=== PATIENT | male | born 1940 | race Two or more races ===

== ENCOUNTER 2017-10-26 10:42 | Inpatient (IN) | payer MEDICARE, MEDICAID ==
[~2017-10-26] VITALS: Ht 170.2 cm; Wt 68.5 kg
[~2017-10-26 10:42] MED LIST: PANT40SU2 PO; SUCR1ORA6 PO
--- NOTE | 2017-10-26 11:00 | NUR ---
ASSUME PT CARE. RESTING IN BED. HERE FOR DIZZINESS SINCE YESTERDAY. ALSO C/O NAUSEA NO VOMITING. DENIES CHEST PAIN. GOWNED AND PLACED ON MONITOR. AWAITING MD NELSON.
--- NOTE | 2017-10-26 11:16 | NUR ---
DR MARCELO AT BEDSIDE FOR EVAL.
--- NOTE | 2017-10-26 11:20 | NUR ---
IV LINE STARTED BLOOD DRAWN AND SENT TO LAB.
[2017-10-26 11:25] LABS: BASOPHILS # (AUTO) 0.1 /CMM (0.0-0.2); BASOPHILS % (AUTO) 2.5 % (0.0-2.0); EOSINOPHILS % (AUTO) 0.6 % (0.0-6.0); HEMATOCRIT 46 % (39-51); LYMPHOCYTES # (AUTO) 1.1 /CMM (0.8-4.8); LYMPHOCYTES % (AUTO) 19.2 % (20.0-44.0); MEAN CORPUSCULAR HEMOGLOBIN 29 PG (26.0-33.0); MEAN CORPUSCULAR HGB CONC 33 g/dl (31.0-36.0); MEAN CORPUSCULAR VOLUME 87 fL (80-96); MONOCYTES # (AUTO) 0.4 /CMM (0.1-1.30); MONOCYTES % (AUTO) 6.4 % (2.0-12.0); NEUTROPHILS # (AUTO) 4.1 /CMM (1.8-8.9); NEUTROPHILS % (AUTO) 71.3 % (43.0-81.0); PLATELET COUNT (AUTO) 78 /CMM (150-450); RDW COEFFICIENT OF VARIATION 12.9 (11.5-15.0); RED BLOOD CELL COUNT(AUTO) 5.26 MIL/uL (4.5-6.0); WHITE BLOOD COUNT (AUTO) 5.7 K/uL (4.3-11.0)
[2017-10-26] MEDS ORDERED: METOCLOPRAMIDE HCL 10 MG/2 ML VIAL ONE (11:28)
[2017-10-26] MEDS ORDERED: MECLIZINE HCL 25 MG TABLET ONE (11:28)
[2017-10-26] MEDS ORDERED: METOCLOPRAMIDE HCL 10 MG/2 ML VIAL IV ONE (11:30)
[2017-10-26] MEDS ORDERED: MECLIZINE HCL 12.5 MG TABLET PO ONE (11:30)
[2017-10-26] MEDS ORDERED: IV NS 0.9% 1,000 ML BAG IV ONE (11:30)
--- NOTE | 2017-10-26 11:32 | NUR ---
PT TO RADIOLOGY FOR HEAD CT SCAN VIA [facility] [place].
[2017-10-26 11:34] LABS: CALCIUM, SERUM 9.1 mg/dL (8.5-10.1); CARBON DIOXIDE 24 mmol/L (21-32); CHLORIDE 105 mmol/L (98-107); GLUCOSE 130 mg/dL (74-106); SODIUM SERUM 139 mmol/L (136-145); UREA NITROGEN, BLOOD 13 mg/dL (7-18)
--- NOTE | 2017-10-26 13:12 | NUR ---
PT IS ROAD TESTED. STEADY GAIT, PT STILL C/O BEING DIZZY BUT NOT BAD EARLIER. DR MARCELO AWARE.
--- NOTE | 2017-10-26 13:15 | NUR ---
PAGEDonta ALVARES FOR PANEL
[2017-10-26] MEDS ORDERED: DUTA0.5C PO (13:28)
[2017-10-26] MEDS ORDERED: PANT40TA4 PO (13:28)
[2017-10-26] MEDS ORDERED: SIMV40TA5 PO (13:28)
[2017-10-26] MEDS ORDERED: ASPIRIN 81 MG TAB.CHEW PO ONE (13:30)
[2017-10-26] MEDS ORDERED: ASPIRIN 81 MG TAB.CHEW ONE (13:43)
--- NOTE | 2017-10-26 14:30 | NUR ---
REPORT GIVEN TO REJI. PT AWAITNG TRANSFER TO FLOOR.
--- NOTE | 2017-10-26 15:00 | NUR ---
CROSSCUTTER ROLLED GLASS NOTES RECEIVED PT FROM E.R. STAFF VIA [facility], PT ABLE TO WALK TO BED WITH STANDBY ASSISTANCE, PT ALERT AND ORIENTED, NO COMPLAINT OF PAIN, BREATHING PATTERN NORMAL, STATED THAT HE STILL FEELS DIZZY BUT A LITTLE BETTER, SAFETY PRECAUTIONS OBSERVED, AT BEDSIDE, ASSISTED TO BATHROOM NEEDED, ROOM SET UP ORIENTATION PROVIDED, VERBALIZED UNDERSTANDING, VITAL SIGNS TAKEN AND RECORDED.
[2017-10-26 16:00] VITALS: BP 132/75
--- NOTE | 2017-10-26 16:30 | NUR ---
LINE UP WORKER NOTES PT IN BED, AWAKE, ALERT AND ORIENTED, BEDSIDE SWALLOW SCREEN DONE, PATIENT PASSED TEST, MD INFORMED, ORDERED REGULAR DIET.
[2017-10-26 17:19] LABS: INR 1.03 (0.87-1.13); PROTHROMBIN TIME 10.7 SECS (9.5-12.7)
[2017-10-26 17:25] LABS: CALCIUM, SERUM 9.6 mg/dL (8.5-10.1); CARBON DIOXIDE 19 mmol/L (21-32); CHLORIDE 108 mmol/L (98-107); CREATININE 1.1 mg/dL (0.6-1.3); GLUCOSE 131 mg/dL (74-106); POTASSIUM 4.2 mmol/L (3.5-5.1); SODIUM SERUM 143 mmol/L (136-145); UREA NITROGEN, BLOOD 13 mg/dL (7-18)
[2017-10-26] MEDS: BLOOD SUGAR DIAGNOSTIC 1 EACH STRIP IN SCH ×2 (17:27→21:00)
[2017-10-26 17:39] LABS: ALANINE AMINOTRANSFERASE 16 U/L (12-78); ALBUMIN 3.5 g/dL (3.4-5.0); ALKALINE PHOSPHATASE 69 U/L (46-116); ASPARTATE AMINOTRANSFERASE 20 U/L (15-37); B-TYPE NATRIURETIC PEPTIDE 114 PG/ML (0-125); BILIRUBIN,TOTAL 1.1 mg/dL (0.2-1.0); TOTAL PROTEIN, SERUM 7.8 g/dL (6.4-8.2)
[2017-10-26] MEDS ORDERED: BLOOD SUGAR DIAGNOSTIC 1 EACH STRIP IN SCH (18:00)
[2017-10-26 18:01] LABS: THYROID STIMULATING HORMONE 2.043 uIU/mL (0.358-3.74)
--- NOTE | 2017-10-26 18:22 | NUR ---
SUPERVISOR MILL NOTES PT IN BED, AWAKE, ALERT AND ORIENTED, NO COMPLAINT OF PAIN, BREATHING PATTERN NORMAL, TOLERATING ROOM AIR WELL, PLAN OF CARE DISCUSSED WITH PT, VERBALIZED UNDERSTANDING, STATED THAT HIS DIZZINESS IS IMPROVED, SAFETY PRECAUTIONS OBSERVED, STROKE EDUCATION PROVIDED, VERBALIZED UNDERSTANDING, CALL LIGHT WITHIN REACH, REMINDED PT TO ALWAYS USE CALL LIGHT FOR ASSISTANCE, ATE DINNER WITH GOOD APPETITE, ALL NEEDS ATTENDED.
--- NOTE | 2017-10-26 19:00 | NUR ---
RN NOTES RECEIVED PT IN BED RESTING COMFORTABLY. A/O X 3, PT IN STABLE CONDITION, NO S/S OF DISTRESS. NO COMPLAINS OF PAIN AT THIS TIME. SAFETY MEASURES ARE IN PLACE, CALL LIGHT IS IN REACH. WILL CONTINUE TO MONITOR.
[2017-10-26 20:00] VITALS: BP 110/65
[2017-10-27] VITALS: BP 113/60
[2017-10-27 02:35] LABS: APPEARANCE,URINE CLEAR (CLEAR); BILIRUBIN,URINE NEGATIVE (NEGATIVE); BLOOD, URINE NEGATIVE Ery/uL (NEGATIVE); COLOR,URINE YELLOW (YELLOW); KETONES,URINE NEGATIVE (NEGATIVE); LEUKOCYTE ESTERASE ,URINE NEGATIVE (NEGATIVE); NITRITE, URINE NEGATIVE (NEGATIVE); PROTEIN,URINE NEGATIVE (NEGATIVE); UGLUCOSE NEGATIVE (NEGATIVE)
[2017-10-27 02:53] LABS: BACTERIA,URINE None seen /HPF (None Seen); RBC,URINE NONE SEEN /HPF (0-2); SQUAMOUS EPITHELIAL CELL,UR Few /HPF (None Seen); WBC,URINE 0-2 /HPF (0-3)
[2017-10-27 04:00] VITALS: BP 114/65
[2017-10-27 06:34] LABS: BASOPHILS % (AUTO) 0.3 % (0.0-2.0); EOSINOPHILS # (AUTO) 0.1 /CMM (0.0-0.7); HEMATOCRIT 41 % (39-51); HEMOGLOBIN 13.5 g/dL (13.5-17.5); LYMPHOCYTES # (AUTO) 1.5 /CMM (0.8-4.8); LYMPHOCYTES % (AUTO) 26.5 % (20.0-44.0); MEAN CORPUSCULAR HEMOGLOBIN 29 PG (26.0-33.0); MEAN CORPUSCULAR HGB CONC 33 g/dl (31.0-36.0); MEAN CORPUSCULAR VOLUME 87 fL (80-96); MONOCYTES # (AUTO) 0.5 /CMM (0.1-1.30); MONOCYTES % (AUTO) 8.9 % (2.0-12.0); NEUTROPHILS # (AUTO) 3.6 /CMM (1.8-8.9); NEUTROPHILS % (AUTO) 63.3 % (43.0-81.0); PLATELET COUNT (AUTO) 72 /CMM (150-450); RDW COEFFICIENT OF VARIATION 13.2 (11.5-15.0); RED BLOOD CELL COUNT(AUTO) 4.72 MIL/uL (4.5-6.0); WHITE BLOOD COUNT (AUTO) 5.8 K/uL (4.3-11.0)
--- NOTE | 2017-10-27 06:48 | NUR ---
HEAT REGULATOR CLOSING NOTES IN BED ASLEEP AND EASILY AWAKEN A/O X4, HEAD OF BED ELEVATED FOR BETTER LUNG EXPANSION. O2 SAT AT 98% R.A RESPIRATIONS EVEN AND UNLABORED. NO S/S OF ACUTE DISTRESS. IN STABLE CONDITION. AFEBRILE, ALL NURSING CARE RENDERED. NEEDS ATTENDED AND ANTICIPATED, KEPT CLEAN AND DRY AND COMFORTABLE, NO COMPLAINS OF PAIN AT THIS TIME. ATTACH TO TELE MONITOR SR, 72'S. WITH EPISODES OF 1ST DEGREE AV BLOCK MADE AWARE HOME INSURANCE AGENT NOTIFIED DURING THE NIGHT NO NEW ORDERS. GOOD SKIN CARE PROVIDED. FREQUENT VISUAL CHECK DONE FOR SAFETY EVERY 2 HOURS. SAFE HAZARD FREE ENVIRONMENT PROVIDED. CALL LIGHT WITHIN EASY TO REACH, ON LOW BED AT ALL TIMES TO ENSURE SAFETY.WILL ENDORSE TO THE NEXT SHIFT.
[2017-10-27 06:50] LABS: INR 1.02 (0.87-1.13); PROTHROMBIN TIME 10.6 SECS (9.5-12.7)
[2017-10-27 06:54] LABS: CHOLESTEROL 159 mg/dL (<200); HDL CHOLESTEROL 39 mg/dL (40-60); LDL 99 mg/dL (0-99); TRIGLYCERIDES 103 mg/dL (30-150)
[2017-10-27 07:06] LABS: CALCIUM, SERUM 8.9 mg/dL (8.5-10.1); CARBON DIOXIDE 25 mmol/L (21-32); CHLORIDE 110 mmol/L (98-107); CREATININE 0.9 mg/dL (0.6-1.3); GLUCOSE 91 mg/dL (74-106); POTASSIUM 4.1 mmol/L (3.5-5.1); SODIUM SERUM 142 mmol/L (136-145); UREA NITROGEN, BLOOD 11 mg/dL (7-18)
[2017-10-27 07:10] VITALS: BP 119/60
--- NOTE | 2017-10-27 07:30 | NUR ---
RECEIVED PATIENT IN STABLE CONDITION. PATIENT IS ALERT AND ORIENTED. BEDSIDE RAILS ARE UP X2. BED IS LOCKED AND LOWERED. CALL LIGHT IS WITHIN REACH. WILL CONTINUE TO MONITOR.
[2017-10-27] MEDS: BLOOD SUGAR DIAGNOSTIC 1 EACH STRIP IN SCH ×4 (07:55→21:23)
[2017-10-27] MEDS: PANTOPRAZOLE 40 MG TABLET.DR PO SCH (07:56)
--- NOTE | 2017-10-27 08:12 | NUR ---
INFORMED DR KUMAR OF PATIENTS LOW PLATELET LEVEL: 72. NO NEW ORDERS.
[2017-10-27] MEDS: SIMVASTATIN 40 MG TABLET PO SCH (09:01)
[2017-10-27] MEDS: DUTASTERIDE (0.5 MG) 0.5 MG CAPSULE PO SCH (09:01)
[2017-10-27] MEDS ORDERED: TOBR5DRO12 EACHEYE (10:32)
[2017-10-27 11:35] LABS: EOSINOPHILS % (MANUAL) 1 % (0-4); LYMPHOCYTES % (MANUAL) 23 % (16-48); MONOCYTES % (MANUAL) 6 % (0-11.0); NEUTROPHILS % (MANUAL) 70 (42-76)
[2017-10-27 15:45] VITALS: BP 128/75
--- NOTE | 2017-10-27 16:48 | NUR ---
BLOOD SUGAR 104. NO COVERAGE NEEDED
[2017-10-27] MEDS: TOBRAMYCIN OPHTH 5ML 5 ML BOTTLE EACHEYE SCH ×2 (16:56→21:22)
--- NOTE | 2017-10-27 19:00 | NUR ---
RN NOTES RECEIVED PT IN BED. A/O X 4, PT IN STABLE CONDITION, NO S/S OF DISTRESS. NO COMPLAINS OF PAIN AT THIS TIME. SAFETY MEASURES ARE IN PLACE, CALL LIGHT IS IN REACH. WILL CONTINUE TO MONITOR.
--- NOTE | 2017-10-27 19:12 | NUR ---
MS RN CLOSING NOTES PATIENT IS IN STABLE CONDITION. ALL NEEDS WERE MET. CALL LIGHT IS WITHIN REACH. IN NO APPARENT DISTRESS. PATIENT IS ALERT AND ORIENTED. RESTING IN BED. BEDSIDE RAILS ARE UP X2. BED IS LOCKED AND LOWERED. WILL ENDORSE CARE TO MANAGER GOLF NURSE FOR CARROL.
[2017-10-27 20:00] VITALS: BP 136/62
--- NOTE | 2017-10-28 00:22 | NUR ---
MS RN NOTES PER PT WANT TO REMOVE IV LINE TO R HAND 20 BECAUSE IT BOTHERS HIM, REMOVED WILFREDO PROCEDURE WELL. IV ACCESS WAS PUT TO RFA 24 G TOLERATED PROCEDURE PER PT HE FEELS MORE OK WITH IT AND PREFERRED IT
[2017-10-28] MEDS: BLOOD SUGAR DIAGNOSTIC 1 EACH STRIP IN SCH ×2 (05:26→12:21)
--- NOTE | 2017-10-28 06:07 | NUR ---
MS RN CLOSING NOTES IN BED ASLEEP AND EASILY AWAKEN, HOB ELEVATED, TOLERATING ROOM AIR O2 SAT AT 100% RESPIRATIONS EVEN AND UNLABORED. AFEBRILE, IN STABLE CONDITION. NOT IN S/S OF DISTRESS. NO COMPLAINS OF PAIN. ALL NURSING CARE RENDERED. NEEDS ATTENDED AND ANTICIPATED, KEPT CLEAN AND DRY AND COMFORTABLE, GOOD SKIN CARE PROVIDED. FREQUENT VISUAL CHECK DONE FOR SAFETY EVERY 2 HOURS. ON LOW BED AT ALL TIMES TO ENSURE SAFETY. SAFE HAZARD FREE ENVIRONMENT PROVIDED. CALL LIGHT WITHIN EASY TO REACH. WILL ENDORSE NEXT SHIFT CONTINUITY OF CARE
--- NOTE | 2017-10-28 07:10 | NUR ---
MS RN OPENING NOTES RECEIVED PT FROM NIGHTSHIFT NURSE IN STABLE CONDITION. PT IS A/O X4. NO SOB OR SIGNS OF DISTRESS NOTED. BREATHING IS EVEN AND UNLABORED. PT DENIES ANY DIZZINESS, NAUSEA, OR PAIN AT THIS TIME. IV NOTED ON RIGHT FA 24G HL. IV IS PATENT AND INTACT. NO REDNESS OR SIGNS OF INFILTRATION NOTED. BED IN LOW LOCKED POSITION, SIDE RAILS UP X2, CALL LIGHT WITHIN REACH. PT'S AT BEDSIDE. WILL CONTINUE TO MONITOR.
[2017-10-28] MEDS: PANTOPRAZOLE 40 MG TABLET.DR PO SCH (07:36)
[2017-10-28 08:00] VITALS: BP 139/73
[2017-10-28] MEDS: DUTASTERIDE (0.5 MG) 0.5 MG CAPSULE PO SCH (09:14)
[2017-10-28] MEDS: TOBRAMYCIN OPHTH 5ML 5 ML BOTTLE EACHEYE SCH ×2 (09:14→12:28)
[2017-10-28] MEDS: SIMVASTATIN 40 MG TABLET PO SCH (09:14)
[2017-10-28] MEDS ORDERED: ASPIRIN EC 325 MG TABLET.DR PO SCH (13:00)
--- NOTE | 2017-10-28 13:32 | NUR ---
MS RN NOTES PT TAKEN DOWN FOR BRAIN MRI BY WHEELCHAIR IN STABLE CONDITION
--- NOTE | 2017-10-28 13:52 | NUR ---
MS RN NOTES PT BACK ON UNIT IN STABLE CONDITION FROM MRI. WILL AWAIT AND NOTIFY MD OF RESULTS
--- NOTE | 2017-10-28 17:43 | NUR ---
MS RN NOTES DR. ELAM WAS CONTACTED IN REGARDS TO PT'S MRI RESULTS. NO RESPONSE. DR. ALVARES MADE AWARE OF RESULTS AND STATED TO PROCEED WITH DISCHARGE AND "TCC IN WEEK". HE ALSO STATED THAT PT'S DOES NOT NEED TO BE ON ANY ANTITHROMBOTICS UPON DISCHARGE HE DID NOT HAVE A STROKE BUT POSSIBLE "VERTIGO". WILL CARRY OUT DISCHARGE.
--- NOTE | 2017-10-28 18:03 | NUR ---
MS EXTRA HAND NOTES PT WAS DISCHARGED FROM UNIT IN STABLE CONDITION. ALL NEEDS WERE METT DURING SHIFT AND ORDERS CARRIED OUT ACCORDINGLY. ALL DUE MEDS GIVEN. DISCHARGE INSTRUCTIONS WERE DISCUSSED IN FULL WITH BOTH THE PATIENT AND HIS . DISCHARGE STOKE EDUCATION PROVIDED TO PATIENT AND FAMILY. PT LEFT WITH DISCHARGE INSTRUCTIONS, FOLLOW UP APPOINTMENT REMINDER, STROKE PACKET, AND ALL BELONGINGS. IV WAS SUCCESSFULLY REMOVED WITH NO COMPLICATIONS. PT WAS SAFELY WHEELED DOWN TO HIS PRIVATE VEHICLE BY THE AUTOMOBILE PAINTER
== END 2017-10-28 18:00 | disposition home or self-care (01) | DRG 74 ==
LOC: ER 10:47 → TELE 14:24 → MED 10-27 09:20
PROVIDERS: ADMIT Internal Medicine; ATTEND Internal Medicine
DX: G90.8 Other disorders of autonomic nervous system (principal); D69.6 Thrombocytopenia, unspecified; E78.00 Pure hypercholesterolemia, unspecified; K21.9 Gastro-esophageal reflux disease without esophagitis; E78.5 Hyperlipidemia, unspecified; N40.0 Benign prostatic hyperplasia without lower urinary tract symptoms; Z83.3 Family history of diabetes mellitus
CPT/HCPCS: 36415; 70450-TC; 70551-TC; 80048-TC; 80053-TC; 80061-TC; 80305; 81000-TC; 82962-TC; 83880; 84443-TC; 84484-TC; 85025-TC; 85652-TC; 85730-TC; 87081-TC; 92611-TC; 93307-TC; A4606; J2765; J7030; J8597; Z7610

== ENCOUNTER 2017-10-31 11:57 | Outpatient (CLI) | payer MEDICARE, MEDICAID ==
[~2017-10-31] VITALS: Ht 170.2 cm; Wt 65.8 kg
[2017-10-31 11:52] VITALS: BP 145/85
[~2017-10-31 11:57] MED LIST changes: +DUTA0.5C PO; -PANT40SU2 PO; +PANT40TA4 PO; +SIMV40TA5 PO; -SUCR1ORA6 PO; +TOBR5DRO12 EACHEYE
== END 2017-10-31 23:59 | disposition home or self-care (01) ==
LOC: MSC 11:57
PROVIDERS: ATTEND Internal Medicine
DX: R42 Dizziness and giddiness (principal); E78.5 Hyperlipidemia, unspecified; K21.9 Gastro-esophageal reflux disease without esophagitis; N40.0 Benign prostatic hyperplasia without lower urinary tract symptoms

== ENCOUNTER 2017-11-29 14:40 | Emergency (ER) | payer MEDICARE, MEDICAID ==
[~2017-11-29] VITALS: Ht 170.2 cm; Wt 67.1 kg
[2017-11-29 14:45] VITALS: BP 109/61
[2017-11-29] MEDS ORDERED: ONDANSETRON HCL/PF 4 MG/2 ML VIAL ONE (15:29)
[2017-11-29] MEDS ORDERED: MECLIZINE HCL 25 MG TABLET ONE (15:29)
[2017-11-29] MEDS ORDERED: MECLIZINE HCL 12.5 MG TABLET PO ONE (15:30)
[2017-11-29] MEDS ORDERED: ONDANSETRON HCL/PF 4 MG/2 ML VIAL IVP ONE (15:30)
[2017-11-29 15:40] LABS: BASOPHILS % (AUTO) 0.2 % (0.0-2.0); EOSINOPHILS % (AUTO) 0.2 % (0.0-6.0); HEMATOCRIT 46 % (39-51); HEMOGLOBIN 15.6 g/dL (13.5-17.5); LYMPHOCYTES # (AUTO) 0.8 /CMM (0.8-4.8); LYMPHOCYTES % (AUTO) 11.5 % (20.0-44.0); MEAN CORPUSCULAR HEMOGLOBIN 29 PG (26.0-33.0); MEAN CORPUSCULAR HGB CONC 34 g/dl (31.0-36.0); MEAN CORPUSCULAR VOLUME 85 fL (80-96); MONOCYTES # (AUTO) 0.1 /CMM (0.1-1.30); MONOCYTES % (AUTO) 1.8 % (2.0-12.0); NEUTROPHILS % (AUTO) 86.3 % (43.0-81.0); PLATELET COUNT (AUTO) 76 /CMM (150-450); RDW COEFFICIENT OF VARIATION 13.4 (11.5-15.0); RED BLOOD CELL COUNT(AUTO) 5.37 MIL/uL (4.5-6.0); WHITE BLOOD COUNT (AUTO) 6.9 K/uL (4.3-11.0)
[2017-11-29 15:49] LABS: CALCIUM, SERUM 9.2 mg/dL (8.5-10.1); CARBON DIOXIDE 27 mmol/L (21-32); CHLORIDE 106 mmol/L (98-107); GLUCOSE 144 mg/dL (74-106); POTASSIUM 4.3 mmol/L (3.5-5.1); SODIUM SERUM 142 mmol/L (136-145); UREA NITROGEN, BLOOD 14 mg/dL (7-18)
== END 2017-11-29 17:29 | disposition home or self-care (01) ==
LOC: ER 14:42
DX: R42 Dizziness and giddiness (principal); R11.2 Nausea with vomiting, unspecified; R09.89 Other specified symptoms and signs involving the circulatory and respiratory systems; K21.9 Gastro-esophageal reflux disease without esophagitis
CPT/HCPCS: 36415; 80048; 85025; 93005; 96374; 99285; A4606; J2405; J8597; Z7610

== ENCOUNTER 2022-07-12 15:33 | Emergency (ER) | payer MEDICARE, OTHER ==
[~2022-07-12] VITALS: Ht 170.2 cm; Wt 66.2 kg
[~2022-07-12 15:33] MED LIST changes: -PANT40TA4 PO; +PANT40TA49 PO; +SIMV-49 PO; -SIMV40TA5 PO; -TOBR5DRO12 EACHEYE; +TOBR5DRO36 EACHEYE
[2022-07-12] MEDS ORDERED: MINERAL OIL 133 ML (PYXIS) 1 EA ENEMA RC ONE (16:00)
[2022-07-12] MEDS ORDERED: MAGNESIUM CITRATE 296 ML BOTTLE PO ONE (16:00)
[2022-07-12] MEDS ORDERED: NA PHOS,M-B/NA PHOS,DI-BA 1 EA ENEMA RC ONE (16:21)
--- NOTE | 2022-07-12 16:30 | NUR ---
Fleets enema as ordered (may need disimpaction). +External hemorrhoids noted. Dr. Umanzor made aware
[2022-07-12] MEDS ORDERED: PEG 3350/NA SULF,BICARB,CL/KCL 4,000 ML BOTTLE PO ONE (17:00)
--- NOTE | 2022-07-12 17:30 | NUR ---
Family at bedside. Both made aware of plan of care
--- NOTE | 2022-07-12 20:07 | NUR ---
DR. LAW GILBERT AT PT'S BEDSIDE FOR FECAL DISIMPATION
[2022-07-12] MEDS ORDERED: DOCU-141 PO (20:20)
[2022-07-12] MEDS ORDERED: POLY17PO4 PO (20:20)
--- NOTE | 2022-07-12 20:32 | NUR ---
pt discharged in stable condition. Discharge paper work provided pt. left in stable comdition
[2022-07-12 20:37] VITALS: BP 142/84
== END 2022-07-12 20:37 | disposition home or self-care (01) ==
LOC: ER 15:35
DX: K56.41 Fecal impaction (principal); K21.9 Gastro-esophageal reflux disease without esophagitis; Z79.899 Other long term (current) drug therapy